=== PATIENT | male | born 1995 | race Caucasian/White ===

== ENCOUNTER 2025-06-16 09:21 | Emergency (ER) | payer BC, SELFPAY ==
[2025-06-16 09:26] VITALS: BP 162/89; PULSE 97; RESP 14; TEMP 36.2; O2SAT 100
--- NOTE | 2025-06-16 09:30 | ED_ITS ---
HPI - Skin/Abscess/Foreign Bdy General Chief complaint: Skin/Abscess/Foreign Body Stated complaint: poss spider bite on lower back Time Seen by Provider: 06/16/25 09:30 Source: patient Mode of arrival: ambulatory Limitations: no limitations History of Present Illness HPI narrative: Justin is a 30-year-old male patient presenting to the clinic today with complaints of a possible spider bite to his low back/buttocks. He reports he 1st noticed it Saturday of this past week. Started draining on Saturday and stated a bloody core came out of it. No known fevers, chills, body aches. Does have redness and localized swelling around the possible bite. Rates his pain /. Related Data Allergies Allergy/AdvReac Type Severity Reaction Status Date / Time No Known Allergies Allergy Verified 06/16/25 09:25 Review of Systems Review of Systems: Pertinent positives per HPI. Patient denies any fever, chills, rash, headache, visual changes, dizziness, cough, shortness of breath, chest pain, palpitations, nausea, vomiting, diarrhea, constipation, abdominal pain, or any urinary issues. PMFSH Comments At the time of my signature, I reviewed and agree with the nursing past medical, surgical, social, and family history. There is no relevant family history pertinent to the patient complaint. Exam Narrative: General: Well-developed, well nourished, in no apparent distress Head: Normocephalic, atraumatic. Cardio: Regular rate and rhythm, s1 and s2 normal, no murmur appreciated. Resp: Clear to auscultation bilaterally, no rhonchi, rales, wheezing or rubs. Integumentary: [place], warm, and dry, 6 x 3 cm indurated abscess with redness and tenderness to palpation-minimal fluctuant to the right gluteal cleft Course Course Emergency Course: Portions of this record may have been created with voice recognition software. Level of Care: Express Care Visit Vital Signs Vital signs: Vital Signs Temperature 36.2 C L 06/16/25 09:26 Pulse Rate 97 06/16/25 09:26 Respiratory Rate 14 06/16/25 09:26 Blood Pressure 162/89 H 06/16/25 09:26 Pulse Oximetry 100 06/16/25 09:26 Oxygen Delivery Room Air 06/16/25 09:26 Temperature 36.2 C L 06/16/25 09:26 Pulse Rate 97 06/16/25 09:26 Respiratory Rate 14 06/16/25 09:26 Blood Pressure 162/89 H 06/16/25 09:26 Pulse Oximetry 100 06/16/25 09:26 Oxygen Delivery Room Air 06/16/25 09:26 Vital signs reviewed Procedures Abscess I/D Pilonidal cyst: Date of Incision: 06/16/25 Side (if applicable): right (Gluteal cleft) Local Anesthetic: lidocaine 1% and with epi Amount of anesthesia used (mL): 2 Technique: incised with #11 blade Amount of fluid expressed (mL): 2 Irrigation: No Packing used?: none I&D Results: Blood Complications: other (None) Abcess I&D Additional Comments: Verbal consent obtained for incision and drainage. Risk and benefits explained and patient voiced understanding. Area was cleansed with betadine. Area was prepped and draped using sterile technique. 27 gauge needle was then used to instill (2) ml of lidocaine with epi into the wound edges. Patient tolerated well and anesthesia was appropriate. An 11 blade scalpel was then used to make a 1cm incision over the abscess. Blood expressed from cavity. Wound culture obtained and sent to lab. Patient tolerated procedure well. MDM - Skin/Abscess/Foreign Bdy MDM Narrative Medical decision making narrative: At the time of visit patient is resting comfortably on the exam table. Patient appears to be nontoxic. Complaints of a possible spider bite to his low back/buttocks. He reports he 1st noticed it Saturday of this past week. Started draining on Saturday and stated a bloody core came out of it. No known fevers, chills, body aches. Does have redness and localized swelling around the possible bite. Rates his pain 5/10. On exam patient has a 6 x 3 cm indurated abscess with redness and tenderness to palpation-minimal fluctuant to the right gluteal cleft. Recommend incision and drainage in patient gives consent. Procedure: Incision and drainage was performed-risk and benefits were reviewed and patient voiced understanding. Area was cleansed with Betadine and a 27 gauge needle was used to instill 2 mL of lidocaine with epi into the abscess edges. Anesthesia was appropriate. Eleven blade was then used to make a 1 cm incision into the abscess center. Blood was expressed without any exudate. Wound culture was obtained of the wound. Area was re-cleansed and 4 x 4 dressings were applied. Plan: I suspect patient has a gluteal cleft abscess/pilonidal cyst. Area of induration measuring 6 x 3 cm. Incision and drainage performed without expressive any exudate. Wound culture was obtained. Prescription for Augmentin and metronidazole was sent to the pharmacy. Supportive measures were discussed with the patient and they voiced understanding discharge instructions and agrees to treatment plan. Return precautions reviewed Differential Diagnosis Differential diagnosis: Likely abscess of skin or subcutaneous tissue, viral exanthem, dermatophytosis, urticaria, herpes zoster, allergic reaction to drug, cellulitis, eczema, insect bites, impetigo and contact dermatitis Discharge Plan Discharge Clinical Impression: Pilonidal abscess of cleft Patient Disposition: Home Condition: Stable Instructions: Antibiotic Form, Pilonidal Cyst (ED) Additional Instructions: Incision and drainage was performed in the clinic today Wound culture was sent to the lab Take Augmentin and metronidazole as prescribed Keep area clean and dry as much as possible Increase fluids and stay well hydrated May take Tylenol/Motrin as needed for pain as per bottle directions Follow-up with your PCP or return to the clinic in 2-3 days for wound check Leave bandage on for 24 hours then may remove and apply band aide covering as needed. Watch for signs and symptoms of worsening infection- redness, streaking, swelling, purulent discharge, or increase in pain. Go to the emergency room if you develop worsening of infection. Patient Language: Brazilian Prescriptions: New amoxicillin-pot clavulanate 875-125 mg tablet 1 tablet PO Q12H 7 Days Qty: 14 0RF metronidazole 500 mg tablet 500 mg PO Q8H 7 Days Qty: 21 0RF Follow-up/Referrals: PHYSICIAN,UPHOLSTERED GOODS CRAFTER [Primary Care Provider, Internal Medicine] Time of Disposition: 10:03 Quality NIHSS Nursing Documentation ED NIHSS nursing documentation: reviewed/agree
[2025-06-16] MEDS: LIDO 1%/EPINEPHRINE 1:100,000 20 ML VIAL 10 ML INFILTRATE (09:47)
--- OUTSIDE RECORDS SUMMARY | 2025-06-16 10:27 | XMS_ITS | Clinical Summary ---
Author Organization [facility] Address [address] [place] [address] Care Team Providers Care Rent And Housing Investigator Name Role Phone No, Physician Primary Care Provider [phone] Allergies Active Allergy Reactions Criticality Noted Date Comments Amoxicillin Medications lisinopriL (PRINIVIL,ZESTRI L) 10 mg tablet Take 1 tablet (10 mg total) by mouth daily 30 tablet 10/01/2023 Active Social History Tobacco Use Types Packs/Day Years Used Date Smoking Tobacco: Never Assessed Personal Safety Answer Date Recorded Have you ever been in or are you currently in a harmful physical or emotional relationship or is someone making you feel afraid or unsafe? Denies 10/01/2023 Sex and Gender Information Value Date Recorded Sex Assigned at Not on file Legal Sex Male 3:07 PM TONGSMAN Gender Identity Not on file Sexual Orientation Not on file Last Filed Vital Signs Vital Sign Reading Time Taken Comments Blood Pressure 161/95 10/01/2023 3:00 PM TONGSMAN Pulse 92 10/01/2023 3:00 PM TONGSMAN Temperature 37.2 C (98.9 F) 10/01/2023 12:17 PM TONGSMAN Respiratory Rate 18 10/01/2023 3:00 PM TONGSMAN Oxygen Saturation 97% 10/01/2023 3:00 PM TONGSMAN Inhaled Oxygen Concentration - - Weight 113.4 kg (250 lb) 10/01/2023 12:17 PM TONGSMAN Height - - Body Mass Index - - Plan of Treatment Health Maintenance Due Date Last Done Comments Depression Screening 1997 Hepatitis C Screening 1997 Varicella Vaccines (2 of 2 - 2-dose childhood series) 03/14/2002 12/20/2001 HPV Vaccines (2 - Male 3-dose series) 09/26/2012 08/29/2012 Regular Well Visit/Exam 18-64 2015 DTaP/Tdap/Td Vaccine (7 - Td or Tdap) 08/29/2022 08/29/2012, 12/15/2001, 09/13/1998, Additional history exists Covid-19 Vaccine (3 - 2024- season) 2025 02/24/2022, 01/27/2022 Influenza Vaccine (#1) 2025 Hepatitis B Screening Completed 08/29/2012 , 1997, 1997, Additional history exists Pneumococcal vaccine <65 Aged Out No longer eligible based on patient's age to complete this topic Care Teams Rent And Housing Investigator Relationship Specialty Start Date End Date No, Physician PCP - General 01/02/17
--- OUTSIDE RECORDS SUMMARY | 2025-06-16 10:27 | XMS_ITS | Clinical Summary ---
Author Organization [facility] Address [address] [place] [address] Phone Care Team Providers Care Child And Family Services Worker Name Role Phone Unavailable Primary Care Provider Unavailabl e Immunizations Immunization Administration Dates Next Due Covid-19, Mrna, Lnp-s, Pf, 1 00 Mcg Or 50 Mcg Dose (MODERNA) 02/24/2022,01/27/2022 DTAP VACCINE 09/13/1998 DTP Vaccine 02/03/1998 DTP-Hib 1997,1997 Hepatitis A Vaccine, Pediatric/adolescent, 2 Dose Schedule 08/29/2012 Hepatitis B Vaccine, Pediatric/adolescent 08/29/2012,1997,1997,04/16 Hib Vaccine,unspecified Formulation 09/13/1998,0 02/03/1998 Human Papillomavirus Vaccine (HPV), quadrivalent 08/29/2012 Inactivated Polio Vaccine 1997,1997 MMR Vaccine 12/15/2001,09/13/1998 Meningococcal Vaccine 08/29/2012 Polio Vaccine,unspecified Formulation 12/15/2001 TDAP Vaccine 08/29/2012 Varicella Vaccine Live 12/20/2001 Social History Tobacco Use Types Packs/Day Years Used Date Smoking Tobacco: Never Assessed Sex and Gender Information Value Date Recorded Sex Assigned at Not on file Legal Sex Male 11:53 PM CDT Gender Identity Not on file Sexual Orientation Not on file Plan of Treatment Health Maintenance Due Date Last Done Comments Hepatitis C Virus (HCV) Screening 1997 Human Papillomavirus (HPV) Immunization (2 - Male 3-dose series) 09/26/2012 08/29/2012 DTaP/Tdap/Td Immunization (6 - Td or Tdap) 08/29/2022 08/29/2012, 09/13/1998, 02/03/1998, Additional history exists Influenza Immunization (#1) 2025 SARS-COV-2 Immunization ( season) 2025 02/24/2022, 01/27/2022 Respiratory Syncytial Virus (RSV) Immunization (Adult) (1 - 1-dose 75+ series) 2072 Hepatitis B Immunization Completed 013, 1997, 1997, Additional history exists Meningococcal Immunization (ACWY) Aged Out 08/29/2012 No longer eligible based on patient's age to complete this topic Pneumococcal Immunization Combined Aged Out No longer eligible based on patient's age to complete this topic Rotavirus Immunization Aged Out No lo nger eligible based on patient's age to complete this topic
== END 2025-06-16 10:15 | disposition home or self-care (01) ==
PROVIDERS: Emergency Provider Nurse Practitioner Family
DX: L05.01 Pilonidal cyst with abscess (principal)
CPT/HCPCS: 10080; 87070; 87077; 87186; 87205; 99203; G0463; J2004

== ENCOUNTER 2025-06-19 08:18 | Emergency (ER) | payer BC, SELFPAY ==
--- OUTSIDE RECORDS SUMMARY | 2025-06-19 08:21 | XMS_ITS | Clinical Summary ---
Author Organization [facility] Address [address] [place] [address] Phone Care Team Providers Care Gauge Maker Apprentice Name Role Phone Unavailable Primary Care Provider [...]
[2025-06-19 08:22] VITALS: BP 149/88; PULSE 87; RESP 20; TEMP 36.7; O2SAT 99
--- OUTSIDE RECORDS SUMMARY | 2025-06-19 08:22 | XMS_ITS | Clinical Summary ---
Author Organization [facility] Address [address] [place] [address] Care Team Providers Care Global Supply Chain Director Name Role Phone No, Physician Primary Care Provider [phone] Allergies Active Allergy Reactions Criticality Noted Date [...] on file Legal Sex Male 3:07 PM REPORTS ANALYSIS MANAGER Gender Identity Not on file Sexual Orientation Not on file Last Filed Vital Signs Vital Sign Reading Time Taken Comments Blood Pressure 161/95 10/01/2023 3:00 PM REPORTS ANALYSIS MANAGER Pulse 92 10/01/2023 3:00 PM REPORTS ANALYSIS MANAGER Temperature 37.2 C (98.9 F) 10/01/2023 12:17 PM REPORTS ANALYSIS MANAGER Respiratory Rate 18 10/01/2023 3:00 PM REPORTS ANALYSIS MANAGER Oxygen Saturation 97% 10/01/2023 3:00 PM REPORTS ANALYSIS MANAGER Inhaled Oxygen Concentration - - Weight 113.4 kg (250 lb) 10/01/2023 12:17 PM REPORTS ANALYSIS MANAGER Height - - Body Mass Index - [...] age to complete this topic Care Teams Global Supply Chain Director Relationship Specialty Start Date End Date No, Physician PCP - General 01/02/17
--- NOTE | 2025-06-19 08:42 | ED.SKABFB ---
HPI - Skin/Abscess/Foreign Bdy General Chief complaint: Wound/Laceration Stated complaint: Wound Check on Back Time Seen by Provider: 06/19/25 08:25 Source: patient Mode of arrival: ambulatory Limitations: no limitations History of Present Illness HPI narrative: 30 yo M presents for wound check. Had abscess to R upper buttock drained 3 days ago. Taking two abx. States pain improving. Was told to return to wound check. All systems reviewed and negative except as noted above. Related Data Allergies Allergy/AdvReac Type Severity Reaction Status Date / Time No Known Allergies Allergy Verified 06/19/25 08:33 PMFSH Comments At time of signature, agree with nursing past medical, surgical, social and family history. There is no relevant family history pertinent to the presenting complaint. Exam Narrative: GENERAL: This is a well-nourished, well-developed patient, in no apparent distress. HEAD: normocephalic, atraumatic. EYES: PERRL. Sclera clear/white. Vision is grossly intact. EARS: External ears normal NOSE: External nose normal NECK: Neck supple, non-tender without lymphadenopathy, masses or thyromegaly. CARDIOVASCULAR: Regular rate and rhythm without murmurs, gallops, or rubs. RESPIRATORY: Clear to auscultation. Breath sounds equal bilaterally. No wheezes, rales, or rhonchi. SKIN: warm, Dry, intact with no suspicious lesions or rash, good texture and turgor. area of induration to R upper buttock, no drainage. scant erythema. no fluctuance. NEURO: awake, alert, and oriented to person, place and time. There were no obvious focal neurologic abnormalities. EXTREMITIES: No joint tenderness, effusion, or edema noted. Course Course Level of Care: Express Care Visit Vital Signs Vital signs: Vital Signs Temperature 36.7 C 06/19/25 08:22 Pulse Rate 87 06/19/25 08:22 Respiratory Rate 20 06/19/25 08:22 Blood Pressure 149/88 H 06/19/25 08:22 Pulse Oximetry 99 06/19/25 08:22 Oxygen Delivery Room Air 06/19/25 08:22 Temperature 36.7 C 06/19/25 08:22 Pulse Rate 87 06/19/25 08:22 Respiratory Rate 20 06/19/25 08:22 Blood Pressure 149/88 H 06/19/25 08:22 Pulse Oximetry 99 10/25/25 08:22 Oxygen Delivery Room Air 06/19/25 08:22 reviewed MDM - Skin/Abscess/Foreign Bdy MDM Narrative Medical decision making narrative: will continue antibiotics as prescribed at last visit. Refer to General surgery if it is infection reoccurs. Differential Diagnosis Differential diagnosis: Likely abscess of skin or subcutaneous tissue Discharge Plan Discharge Clinical Impression: Wound check, abscess Patient Disposition: Home Condition: Stable Instructions: Antibiotic Form, Abscess Follow-up (ED) Additional Instructions: Continue antibiotics as prescribed. Take ibuprofen or tylenol every 6 to 8 hours as needed for pain. Keep clean. Wash with soap and water, pat dry with towel. If infection returns, follow up with general surgery. Patient Language: Bahraini Prescriptions: No Action amoxicillin-pot clavulanate 875-125 mg tablet 1 tablet PO Q12H 7 Days Qty: 14 0RF metronidazole 500 mg tablet 500 mg PO Q8H 7 Days Qty: 21 0RF Follow-up/Referrals: Landon Saavedra MD [Physician, Family Practice] Referral Note: Establish care with primary care physician Pineda Benítez DO [Physician, General Surgery] Referral Note: follow-up with general surgery if infection returns Time of Disposition: 08:39
== END 2025-06-19 08:40 | disposition home or self-care (01) ==
PROVIDERS: Emergency Provider Nurse Practitioner Family
DX: Z48.01 Encounter for change or removal of surgical wound dressing (principal); I10 Essential (primary) hypertension
CPT/HCPCS: 99211; G0463